=== PATIENT | male | born 2000 | race Caucasian/White ===

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

== ENCOUNTER 2024-03-22 21:01 | Emergency (ER) | payer SELFPAY ==
[~2024-03-22] VITALS: Ht 177.8 cm; Wt 73.7 kg
[2024-03-22 21:04] VITALS: BP 159/95; PULSE 92; RESP 16; TEMP 97.8; O2SAT 97
[2024-03-22] MEDS: AMOXICILLIN/CLAVUL 875 MG TAB PO ONE (21:31)
[2024-03-22] MEDS: DexAMETHasone SOD PHOS 10MG/1ML VIAL INJ IM ONE (21:32)
[2024-03-22] MEDS: KETOROLAC TROMETH 60MG/2ML VIAL IM ONE (21:32)
[2024-03-22] MEDS ORDERED: IBUP-1455 PO (22:31)
[2024-03-22] MEDS ORDERED: HYDR-4902 PO (22:31)
[2024-03-22] MEDS ORDERED: AUG875T PO (22:31)
== END 2024-03-22 22:43 | disposition home or self-care (01) ==
LOC: ER 21:01
DX: K04.7 Periapical abscess without sinus (principal)
CPT/HCPCS: 96372; 99284; J1100; J1885